=== PATIENT | male | born 1970 | race Caucasian/White ===

== ENCOUNTER 2019-12-05 16:22 | Emergency (ER) | payer BC ==
[2019-12-05 16:39] VITALS: BP 148/95
[2019-12-05] MEDS ORDERED: Lidocaine 1% MPF ** 5 ML VIAL INJ ONE (17:03)
[2019-12-05] MEDS ORDERED: Tetan/Diph/Pertus SYR(Tdap)* 0.5 ML SYR(BOOSTRIX) use SYR contains LATEX IM ONE (17:04)
--- NOTE | 2019-12-05 17:19 | UC ---
Laceration HPI - HPI Summary HPI Summary: 49 y/o male presents to the urgent care c/o laceration of his four fingers in his left hand s/p moving an oil barrel this morning around 0600AM. Pt reports the edge of the oil barrel was sharp and he tried to move it and cut his all four finger. However left middle and ring finger were bleeding more. He irrigated the wound and stopped the bleeding with an electrical tape and continue working. 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 Pt is not sure when was the last Tetanus vaccine. Pt denies fever, Cough , SOB, sick contacts, dizziness, chest pain, abdominal pain, N/V/d. - History Of Current Complaint Chief Complaint: UCLaceration Stated Complaint: FINGER LACERATION Time Seen by Provider: 12/05/19 16:46 Hx Obtained From: Patient Laceration Location: Finger - left four fingers linear lacerations w/ an oil barrel edge Mechanism Of Injury: Sharp Trauma Onset/Duration: Sudden Onset, Lasting Hours - 10 hrs ago, Still Present Severity: Mild Pain Intensity: 3 Pain Scale Used: 0-10 Numeric Aggravating Factors: Other: - touch Related History: Dominant Hand Right - Allergies/Home Medications Allergies/Adverse Reactions: Allergies Allergy/AdvReac Type Severity Reaction Status Date / Time enviromental Allergy Mild nasal Uncoded 12/05/19 16:32 congestion Home Medications: Home Medications Fexofenadine/Pseudoephedrine [Maricruz-D 24 Hour Tablet] 1 each PO DAILY [History Confirmed 12/05/19] PMH/Surg Hx/FS Hx/Imm Hx Previously Healthy: Yes Endocrine History: Dyslipidemia Cardiovascular History: Hypertension - Surgical History Surgical History: Yes Surgery Procedure, Year, and Place: kidney stent removed 20 yrs ago for stone - Family History Known Family History: Positive: Hypertension - Social History Occupation: Employed Full-time Lives: With Family Alcohol Use: Weekly Substance Use Type: None Smoking Status (MU): Never Smoked Tobacco - Immunization History Most Recent Tetanus Shot: unknown Hx Tetanus, Diphtheria Vaccination: No - Pt is not sure when was the last tetanus vaccine Review of Systems All Other Systems Reviewed And Are Negative: Yes Constitutional: Positive: Negative Skin: Positive: Other - laceration of his left hand fingers w/ an oil barrel edge Eyes: Positive: Negative ENT: Positive: Negative Respiratory: Positive: Negative Cardiovascular: Positive: Negative Gastrointestinal: Positive: Negative Genitourinary: Positive: Negative Motor: Positive: Negative Neurovascular: Positive: Negative Musculoskeletal: Positive: Other: - left middle and ring finger pain s/p lacerations Neurological/Mental Status: Positive: Negative Psychological: Positive: Negative Is Patient Immunocompromised?: No Physical Exam - Summary Physical Exam Summary: Vital Signs Reviewed: Yes General: well developed, well nourished male sitting in the examining table w/o any apparent distress Eye Exam: Normal Eyes: Positive: Conjunctiva Clear - PERRLA, EOMI, fundi grossly normal ENT: Positive: Normal ENT inspection, Hearing grossly normal, Pharynx normal, TMs normal Neck: Positive: Supple, Nontender, No Lymphadenopathy Respiratory: Positive: Chest non-tender, Lungs clear, Normal breath sounds, No respiratory distress Cardiovascular: Positive: RRR, No Murmur, Pulses Normal, Brisk Capillary Refill Abdomen Description: Positive: Nontender, No Organomegaly, Soft. Negative: CVA Tenderness (R), CVA Tenderness (L) Bowel Sounds: Positive: Present Musculoskeletal: Positive: Strength Intact, ROM Intact, No Edema Neurological: Positive: Alert, Muscle Tone Normal Psychological Exam: Normal Skin: Positive: distal palmar side the left middle and ring finger w/ semilunar linear laceration about 2.0cm and 1.8 cm in size respectively, non bleeding, no foreign body observed. mild tenderness to palpation, no ecchymosis around finger. also left index finger and pinky finger with superficial skin avulsions about 0.8cm in size. FROM of all left fingers and left hand , sensation intact, capillary refill brisk, and pulses WNL. Triage Information Reviewed: Yes Vital Signs: Initial Vital Signs Temp 98.2 F 12/05/19 16:38 Pulse 94 12/05/19 16:38 Resp 16 12/05/19 16:38 BP 148/95 12/05/19 16:38 Pulse Ox 98 12/05/19 16:38 Laceration Repair - Laceration Repair 1 Description: Linear - Palmar side of left middle finger semilunar laceration Laceration Size After Repair: Length (cm) - 2.0cm Modified For Repair: No Type Injection: Digital Anesthesia Used: 1.0% Lido - 2ml Cleansing Completed Via Routine Prep: Yes Irrigation With Pressure Irrigation Device: Yes Closure Material: Sutures - 6 Closure Method: Single Layer Suture Of: Skin, SQ, Mucus Membrane Suture Type: Prolene - 5.0 2 Description: Linear - palmar side of the left ring figer w/ a semilunar superficial laceration Laceration Size After Repair: Length (cm) - 1.8cm Modified For Repair: No Type Injection: Digital Anesthesia Used: 1.0% Lido - 2ml Cleansing Completed Via Routine Prep: Yes Irrigation With Pressure Irrigation Device: Yes Closure Material: Sutures - 5 Closure Method: Single Layer Suture Of: Skin, SQ Suture Type: Prolene - 5.0 Laceration Course/Dx - Course/Dx Course Of Treatment: 49 y/o male presents to the urgent care c/o laceration of his four fingers in his left hand s/p moving an oil barrel this morning around 0600AM. Pt reports the edge of the oil barrel was sharp and he tried to move it and cut his all four finger. However left middle and ring finger were bleeding more. He irrigated the wound and stopped the bleeding with an electrical tape and continue working. 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 Pt is not sure when was the last Tetanus vaccine. Pt denies fever, Cough , SOB, sick contacts, dizziness, chest pain, abdominal pain, N/V/d. Hx obtained. Pt is hemodynamically stable, A&OX3. Pt w/ distal palmar side the left middle and ring finger w/ semilunar linear laceration about 2.0cm and 1.8 cm in size respectively, non bleeding, no foreign body observed. mild tenderness to palpation, no ecchymosis around finger. also left index finger and pinky finger with superficial skin avulsions about 0.8cm in size. FROM of all left fingers and left hand , sensation intact, capillary refill brisk, and pulses WNL on examination. LACERATION PROCEDURE NOTE: . Copious irrigation was done with saline by the nurse and the wound explored. There was no FB or deep structure injury noted. FROM of left fingers and hand. procedure was explained and consent obtained, Timeout performed. The wound was anesthetized by digital block at the base of left middle and ring fingers with 4 mL of 1% lido with good anesthesia obtained. Sterile drape and prep were done. There were 6 sutures on the left middle finger and 5 sutures in the left ring finger with 5.0 Prolene type of suture. The length of the wound after closure was 2.0 cm and 1.8 cm respectively. No debridement done. Pt tolerated the procedure well without adverse effects. The left index finger was closed w/ skin adhesive and steristrips. the left pinky finger was a discrete skin avulsion, no closure needed. Bacitraicn applied in all wound and sterile dressing applied by nurse. Neurovascular intact and FROM of all fingers. Tdap ordered and applied by nurse. Pt advised to f/u suture removal in 10-12 days and if any signs of infection develop to immediately return to the urgent care of PCP for further management and treatment. Pt's BP is elevated today and advised to decrease salt in diet, monitor BP and f/u with PCP if BP continues to be elevated for further management. Pt understood and agreed and left the clinic ambulating A&Ox3. - Differential Dx - Laceration/Wound Differental Diagnoses: Abrasion, Cellulitis, Laceration, Puncture Wound, Tendon Laceration - Diagnosis Provider Diagnosis: Laceration of left middle finger, Laceration of left ring finger, Laceration of left index finger, Uncontrolled hypertension Discharge ED - Sign-Out/Discharge Documenting (check all that apply): Patient Departure - D/C home All imaging exams completed and their final reports reviewed: No Studies - Discharge Plan Condition: Stable Disposition: HOME Patient Education Materials: Care For Your Stitches (ED), Laceration (ED) Referrals: Frantz Cabral MD [Primary Care Provider] - 1 Week Additional Instructions: 1-Please apply Bacitracin or Triple antibiotic oint topical antibiotic over the wound 2/day x 7 days. Keep wound clean and dry 2- F/u suture removal in 10-12 days w/ your PCP or here at the urgent care. 3-Take Ibuprofen or Tylenol PO q6-8hrs prn for pain or swelling. 4- If you develop fever or redness around your fingers please return to the Urgent care or your PCP for further management. 5- Your BP is elevated today and advised to decrease salt in diet, monitor BP and f/u with PCP for further management. - Billing Disposition and Condition Condition: STABLE Disposition: Home
== END 2019-12-05 18:15 | disposition home or self-care (01) ==
LOC: UCEAST 16:22
DX: S61.213A Laceration without foreign body of left middle finger without damage to nail, initial encounter (principal); S61.215A Laceration without foreign body of left ring finger without damage to nail, initial encounter; S61.211A Laceration without foreign body of left index finger without damage to nail, initial encounter; W26.8XXA Contact with other sharp object(s), not elsewhere classified, initial encounter; Y93.89 Activity, other specified; Y92.9 Unspecified place or not applicable; Z23 Encounter for immunization; I10 Essential (primary) hypertension
CPT/HCPCS: 12002; 90715; 99201; G0463